=== PATIENT | male | born 1955 | race Caucasian/White ===

== ENCOUNTER 2017-11-20 16:39 | Inpatient (IN) | payer MEDICAID ==
[~2017-11-20] VITALS: Ht 182.9 cm; Wt 52.0 kg
[~2017-11-20 16:39] MED LIST: LISI30TA4 PO; MULT1TAB74 PO; VITA-268 PO
[2017-11-20 22:36] LABS: BASOPHILS % (AUTO) 0 % (0-1); EOSINOPHILS % (AUTO) 0 % (0-6); HEMATOCRIT 28.6 % (42.0-52.0); HEMOGLOBIN 9.6 g/dl (14.0-17.9); LYMPHOCYTES # (AUTO) 0.5 X10'3 (1.1-4.8); LYMPHOCYTES % (AUTO) 3.4 % (21-51); MEAN CORPUSCULAR HEMOGLOBIN 31.4 PG (27.0-31.0); MEAN CORPUSCULAR HGB CONC 33.4 % (33.0-36.5); MEAN PLATELET VOLUME 8.7 FL (7.4-10.4); MONOCYTES # (AUTO) 0.8 X10'3 (0-0.9); MONOCYTES % (AUTO) 5.6 % (2-12); NEUTROPHILS # (AUTO) 12.3 X10'3 (1.8-7.7); PLATELET COUNT 346 X10'3 (140-440); RED BLOOD COUNT 3.04 X10'6 (4.70-6.10); RED CELL DISTRIBUTION WIDTH 13.7 % (11.5-14.5); WHITE BLOOD COUNT 13.5 X10'3 (4.5-11.0)
[2017-11-20 22:51] LABS: ALANINE AMINOTRANSFERASE 61 U/L (12-78); ALBUMIN 2.6 G/DL (3.4-5.0); ALBUMIN/GLOBULIN RATIO 0.7 (1.1-1.5); ALKALINE PHOSPHATASE 47 IU/L (46-116); ANION GAP 12 (8-16); ASPARTATE AMINO TRANSFERASE 52 U/L (10-37); BILIRUBIN,TOTAL 1.1 MG/DL (0.1-1.0); BLOOD UREA NITROGEN 60 MG/DL (7-18); BUN/CREATININE RATIO 16.3 (5.4-32.0); CALCIUM 8.1 MG/DL (8.5-10.1); CHLORIDE 96 MMOL/L (99-107); CREATININE 3.69 MG/DL (0.60-1.10); GLUCOSE 109 MG/DL (70-104); LIPASE 130 U/L (73-393); POTASSIUM 4.4 MMOL/L (3.5-5.1); SODIUM 132 MMOL/L (135-145); TOTAL CARBON DIOXIDE 24.5 MMOL/L (24-32); TOTAL PROTEIN 6.1 G/DL (6.4-8.2); eGFR 17 ML/MIN
[2017-11-20] MEDS ORDERED: morphine 4 MG/ML inj SYRINge IV ONE (23:50)
[2017-11-20] MEDS ORDERED: ondansetron/PF 4mg/2ml inj IV ONE (23:50)
[2017-11-20 23:52] LABS: CLARITY,URINE SLIGHTLY CLOUDY (Clear); COLOR,URINE YELLOW (Yellow); GLUCOSE, URINE NEGATIVE (Neg); KETONES,URINE NEGATIVE (Neg); LEUKOCYTE ESTERASE ,URINE NEGATIVE (Neg); NITRITES, URINE NEGATIVE (Neg); OCCULT BLOOD,URINE SMALL (Neg); PH,URINE 5.5 (4.8-8.0); PROTEIN,URINE TRACE mg/dl (Neg); UA COLLECTION TYPE STRAIGHT CATH; UROBILINOGEN,URINE 0.2 E.U/dL (0.2-1.0)
[2017-11-20] MEDS ORDERED: normal saline 1000ML IV soln IVB ONE (23:55)
[2017-11-21 00:06] LABS: SQUAMOUS EPITHELIAL CELL,UR MODERATE /LPF (FEW)
[2017-11-21 00:07] LABS: BACTERIA,URINE FEW /HPF (Neg); RBC,URINE 0-2 /HPF (0-2); WBC,URINE 0-4 /HPF (0-4)
[2017-11-21 00:08] LABS: AMORPHOUS URATES 2+; MUCUS STRANDS MODERATE /LPF (Neg)
[2017-11-21] MEDS ORDERED: diphenhydrAMINE 25mg capsule PO PRN (00:10)
[2017-11-21] MEDS ORDERED: HYDROmorphone inj. 0.5 MG/0.5 ML DISP.SYRIN IV PRN ×2 (00:10)
[2017-11-21] MEDS ORDERED: acetaminophen 650mg rectal suppository RC PRN (00:10)
[2017-11-21] MEDS ORDERED: HYDROcodone/acetaminophen 5mg/325mg tablet PO PRN (00:10)
[2017-11-21] MEDS ORDERED: metoclopramide 5 mg/ml inj IV PRN (00:10)
[2017-11-21] MEDS ORDERED: acetaminophen 325mg tablet PO PRN ×2 (00:10)
[2017-11-21] MEDS ORDERED: diphenhydrAMINE 50 mg/ml inj IV PRN (00:10)
[2017-11-21] MEDS ORDERED: ondansetron/PF 4mg/2ml inj IV PRN (00:10)
[2017-11-21] MEDS ORDERED: HYDROcodone/acetaminophen 10/325mg tab PO PRN (00:10)
[2017-11-21] MEDS ORDERED: magnesium hydroxide 30ml (MOM) UD suspension PO PRN (00:10)
[2017-11-21] MEDS ORDERED: mag hydrox/Alum hydrox/simeth 30ml oral suspension PO PRN (00:10)
[2017-11-21] MEDS ORDERED: bisacodyl 10mg suppository rectal RC PRN (00:10)
[2017-11-21] MEDS ORDERED: morphine 2 MG/ML inj. syringe IV PRN (00:10)
[2017-11-21 01:09] LABS: INR 1.2 INR; PARTIAL THROMBOPLASTIN TIME 31 SECONDS (22-32); PROTHROMBIN TIME 12.4 SECONDS (9.0-12.0)
[2017-11-21 01:18] LABS: MAGNESIUM 2.5 MG/DL (1.5-2.4); PHOSPHORUS 6.7 MG/DL (2.3-4.5)
[2017-11-21] MEDS: normal saline 1000ml 1,000 ML IV SCH ×2 (02:22→21:32)
[2017-11-21] MEDS: docusate sod 100mg capsule PO SCH ×3 (08:00→20:29)
[2017-11-21] MEDS: furosemide 10 MG/1 ML 10ml inj IV SCH (08:18)
[2017-11-21] MEDS: pantoprazole 40 MG vial IV SCH (08:19)
[2017-11-21] MEDS: albumin (human) 25% 100 ML IV solution IV SCH ×2 (08:20→20:31)
[2017-11-21] MEDS ORDERED: BACL10TA2 PO (08:56)
[2017-11-21] MEDS ORDERED: METO-395 PO (08:56)
[2017-11-21] MEDS ORDERED: OXYC5TAB2 PO (08:58)
[2017-11-21] MEDS: morphine 2 MG/ML inj. syringe IV PRN (10:43)
[2017-11-21 12:07] LABS: BASOPHILS % (AUTO) 0 % (0-1); EOSINOPHILS # (AUTO) 0.2 X10'3 (0-0.9); EOSINOPHILS % (AUTO) 2.3 % (0-6); HEMATOCRIT 26.1 % (42.0-52.0); HEMOGLOBIN 8.7 g/dl (14.0-17.9); LYMPHOCYTES # (AUTO) 0.3 X10'3 (1.1-4.8); LYMPHOCYTES % (AUTO) 2.8 % (21-51); MEAN CORPUSCULAR HEMOGLOBIN 31.6 PG (27.0-31.0); MEAN CORPUSCULAR HGB CONC 33.2 % (33.0-36.5); MEAN CORPUSCULAR VOLUME 95.2 FL (78-98); MEAN PLATELET VOLUME 8.1 FL (7.4-10.4); MONOCYTES # (AUTO) 0.6 X10'3 (0-0.9); MONOCYTES % (AUTO) 5.9 % (2-12); NEUTROPHILS # (AUTO) 9.2 X10'3 (1.8-7.7); PLATELET COUNT 282 X10'3 (140-440); RED BLOOD COUNT 2.74 X10'6 (4.70-6.10); RED CELL DISTRIBUTION WIDTH 13.9 % (11.5-14.5); WHITE BLOOD COUNT 10.4 X10'3 (4.5-11.0)
[2017-11-21 12:23] LABS: ALANINE AMINOTRANSFERASE 51 U/L (12-78); ALBUMIN 2.9 G/DL (3.4-5.0); ALBUMIN/GLOBULIN RATIO 1.1 (1.1-1.5); ALKALINE PHOSPHATASE 33 IU/L (46-116); ANION GAP 9 (8-16); ASPARTATE AMINO TRANSFERASE 43 U/L (10-37); BLOOD UREA NITROGEN 55 MG/DL (7-18); BUN/CREATININE RATIO 19.6 (5.4-32.0); CALCIUM 7.8 MG/DL (8.5-10.1); CHLORIDE 103 MMOL/L (99-107); GLUCOSE 106 MG/DL (70-104); PHOSPHORUS 5.6 MG/DL (2.3-4.5); POTASSIUM 4.5 MMOL/L (3.5-5.1); SODIUM 137 MMOL/L (135-145); TOTAL CARBON DIOXIDE 25.3 MMOL/L (24-32); TOTAL PROTEIN 5.5 G/DL (6.4-8.2); eGFR 23 ML/MIN
[2017-11-21 13:10] VITALS: BP 128/66
[2017-11-21 15:20] VITALS: BP 122/65
[2017-11-21 16:08] VITALS: BP_SYST 122
[2017-11-21 17:00] VITALS: BP 137/78
[2017-11-21 19:30] VITALS: BP 133/69
[2017-11-21] MEDS ORDERED: temazepam 15mg capsule PO PRN (21:00)
[2017-11-21] MEDS: oxyCODONE IR 5mg (immed. release) tablet PO PRN (22:31)
[2017-11-22] VITALS: BP 103/58
[2017-11-22] MEDS: normal saline 1000ml 1,000 ML IV SCH ×2 (01:54→16:52)
[2017-11-22] MEDS: oxyCODONE IR 5mg (immed. release) tablet PO PRN ×4 (04:42→23:34)
[2017-11-22 06:51] LABS: BASOPHILS % (AUTO) 0.2 % (0-1); EOSINOPHILS # (AUTO) 0.2 X10'3 (0-0.9); EOSINOPHILS % (AUTO) 1.7 % (0-6); HEMATOCRIT 26.3 % (42.0-52.0); HEMOGLOBIN 8.8 g/dl (14.0-17.9); LYMPHOCYTES # (AUTO) 0.5 X10'3 (1.1-4.8); MEAN CORPUSCULAR HEMOGLOBIN 31.9 PG (27.0-31.0); MEAN CORPUSCULAR HGB CONC 33.7 % (33.0-36.5); MEAN CORPUSCULAR VOLUME 94.9 FL (78-98); MEAN PLATELET VOLUME 8.5 FL (7.4-10.4); MONOCYTES # (AUTO) 0.7 X10'3 (0-0.9); MONOCYTES % (AUTO) 6.8 % (2-12); NEUTROPHILS # (AUTO) 9.1 X10'3 (1.8-7.7); NEUTROPHILS % (AUTO) 86.3 % (42-75); PLATELET COUNT 292 X10'3 (140-440); RED BLOOD COUNT 2.77 X10'6 (4.70-6.10); RED CELL DISTRIBUTION WIDTH 13.9 % (11.5-14.5); WHITE BLOOD COUNT 10.6 X10'3 (4.5-11.0)
[2017-11-22 07:10] VITALS: BP 102/56
[2017-11-22 07:21] LABS: ALANINE AMINOTRANSFERASE 60 U/L (12-78); ALBUMIN 3.1 G/DL (3.4-5.0); ALBUMIN/GLOBULIN RATIO 1.1 (1.1-1.5); ALKALINE PHOSPHATASE 39 IU/L (46-116); ANION GAP 7 (8-16); ASPARTATE AMINO TRANSFERASE 59 U/L (10-37); BLOOD UREA NITROGEN 45 MG/DL (7-18); BUN/CREATININE RATIO 21.5 (5.4-32.0); CALCIUM 8.1 MG/DL (8.5-10.1); CHLORIDE 102 MMOL/L (99-107); CREATININE 2.09 MG/DL (0.60-1.10); GLUCOSE 109 MG/DL (70-104); POTASSIUM 3.9 MMOL/L (3.5-5.1); SODIUM 135 MMOL/L (135-145); TOTAL CARBON DIOXIDE 25.8 MMOL/L (24-32); TOTAL PROTEIN 5.8 G/DL (6.4-8.2); eGFR 32 ML/MIN
[2017-11-22] MEDS: docusate sod 100mg capsule PO SCH ×2 (08:00→19:43)
[2017-11-22 08:25] LABS: PHOSPHORUS 4.4 MG/DL (2.3-4.5)
[2017-11-22] MEDS: pantoprazole 40 MG vial IV SCH (08:32)
[2017-11-22] MEDS: furosemide 10 MG/1 ML 10ml inj IV SCH (08:33)
[2017-11-22] MEDS: albumin (human) 25% 100 ML IV solution IV SCH ×2 (08:34→19:36)
[2017-11-22 11:00] VITALS: BP 111/61
[2017-11-22] MEDS: morphine 2 MG/ML inj. syringe IV PRN (13:44)
[2017-11-22 18:00] VITALS: BP 123/67
[2017-11-22] MEDS: baclofen 10mg tablet PO PRN (19:34)
[2017-11-23] VITALS: BP 121/71
[2017-11-23] MEDS: normal saline 1000ml 1,000 ML IV SCH ×2 (05:22→19:48)
[2017-11-23 06:34] LABS: BASOPHILS % (AUTO) 0.2 % (0-1); EOSINOPHILS # (AUTO) 0.3 X10'3 (0-0.9); EOSINOPHILS % (AUTO) 2.6 % (0-6); HEMATOCRIT 25.4 % (42.0-52.0); HEMOGLOBIN 8.6 g/dl (14.0-17.9); LYMPHOCYTES # (AUTO) 0.5 X10'3 (1.1-4.8); LYMPHOCYTES % (AUTO) 4.3 % (21-51); MEAN CORPUSCULAR HEMOGLOBIN 31.8 PG (27.0-31.0); MEAN CORPUSCULAR VOLUME 93.5 FL (78-98); MEAN PLATELET VOLUME 7.9 FL (7.4-10.4); MONOCYTES # (AUTO) 1.1 X10'3 (0-0.9); MONOCYTES % (AUTO) 9.4 % (2-12); NEUTROPHILS # (AUTO) 9.9 X10'3 (1.8-7.7); NEUTROPHILS % (AUTO) 83.5 % (42-75); PLATELET COUNT 307 X10'3 (140-440); RED BLOOD COUNT 2.71 X10'6 (4.70-6.10); RED CELL DISTRIBUTION WIDTH 14.2 % (11.5-14.5); WHITE BLOOD COUNT 11.9 X10'3 (4.5-11.0)
[2017-11-23 06:57] LABS: ALANINE AMINOTRANSFERASE 54 U/L (12-78); ALBUMIN 3.5 G/DL (3.4-5.0); ALBUMIN/GLOBULIN RATIO 1.5 (1.1-1.5); ALKALINE PHOSPHATASE 44 IU/L (46-116); ANION GAP 9 (8-16); ASPARTATE AMINO TRANSFERASE 50 U/L (10-37); BILIRUBIN,TOTAL 0.9 MG/DL (0.1-1.0); BLOOD UREA NITROGEN 42 MG/DL (7-18); BUN/CREATININE RATIO 22.1 (5.4-32.0); CALCIUM 7.9 MG/DL (8.5-10.1); CHLORIDE 101 MMOL/L (99-107); GLUCOSE 122 MG/DL (70-104); POTASSIUM 4.1 MMOL/L (3.5-5.1); SODIUM 134 MMOL/L (135-145); TOTAL CARBON DIOXIDE 24.2 MMOL/L (24-32); TOTAL PROTEIN 5.8 G/DL (6.4-8.2); eGFR 36 ML/MIN
[2017-11-23 07:00] VITALS: BP 122/56
[2017-11-23] MEDS: docusate sod 100mg capsule PO SCH ×2 (08:00→19:48)
[2017-11-23] MEDS: furosemide 10 MG/1 ML 10ml inj IV SCH (08:43)
[2017-11-23] MEDS: pantoprazole 40mg Tablet.DR PO SCH (08:44)
[2017-11-23] MEDS: oxyCODONE IR 5mg (immed. release) tablet PO PRN ×3 (08:44→21:41)
[2017-11-23] MEDS ORDERED: LIDOcaine 1%/PF 5ML 10 MG/ML VIAL ONE (10:28)
[2017-11-23 11:12] VITALS: BP 120/72
[2017-11-23 11:38] VITALS: BP 99/42
[2017-11-23 12:00] VITALS: BP 120/72
[2017-11-23 12:58] LABS: BODY FLUID PH (NON-PLEURAL) 7.5
[2017-11-23 13:02] LABS: LDH,BODY FLUID 734 U/L; TOTAL PROTEIN,BODY FLUID 4.1 G/DL; TRIGLYCERIDES,BODY FLUID 16 MG/DL
[2017-11-23 15:15] LABS: EOSINOPHILS,BODY FLUID 2 %; LYMPHOCYTES,BODY FLUID 5 %; MONOCYTES,BODY FLUID 13 %; NEUTROPHILS,BODY FLUID 80 %
[2017-11-23 15:57] LABS: BF RBC COUNT 1400 /CU MM; BF WBC COUNT 5150 /CU MM (0-1000); BFAPPEAR CLOUDY; BFCOLOR YELLOW; BFVOLUME 1200 ML
[2017-11-23 20:00] VITALS: BP 101/63
[2017-11-23] MEDS: baclofen 10mg tablet PO PRN (21:42)
[2017-11-24] VITALS: BP 112/60
[2017-11-24 06:03] LABS: BASOPHILS % (AUTO) 0.1 % (0-1); EOSINOPHILS # (AUTO) 0.4 X10'3 (0-0.9); EOSINOPHILS % (AUTO) 2.9 % (0-6); HEMATOCRIT 28.3 % (42.0-52.0); HEMOGLOBIN 9.3 g/dl (14.0-17.9); LYMPHOCYTES # (AUTO) 0.7 X10'3 (1.1-4.8); LYMPHOCYTES % (AUTO) 4.8 % (21-51); MEAN CORPUSCULAR HEMOGLOBIN 30.9 PG (27.0-31.0); MEAN CORPUSCULAR HGB CONC 32.9 % (33.0-36.5); MEAN CORPUSCULAR VOLUME 94.1 FL (78-98); MEAN PLATELET VOLUME 7.7 FL (7.4-10.4); MONOCYTES # (AUTO) 1.1 X10'3 (0-0.9); MONOCYTES % (AUTO) 7.9 % (2-12); NEUTROPHILS # (AUTO) 11.9 X10'3 (1.8-7.7); NEUTROPHILS % (AUTO) 84.3 % (42-75); PLATELET COUNT 323 X10'3 (140-440); RED BLOOD COUNT 3.01 X10'6 (4.70-6.10); RED CELL DISTRIBUTION WIDTH 14.1 % (11.5-14.5); WHITE BLOOD COUNT 14.2 X10'3 (4.5-11.0)
[2017-11-24 06:45] LABS: ALANINE AMINOTRANSFERASE 50 U/L (12-78); ALBUMIN 2.8 G/DL (3.4-5.0); ALBUMIN/GLOBULIN RATIO 1.1 (1.1-1.5); ALKALINE PHOSPHATASE 42 IU/L (46-116); ANION GAP 7 (8-16); ASPARTATE AMINO TRANSFERASE 39 U/L (10-37); BILIRUBIN,TOTAL 0.9 MG/DL (0.1-1.0); BLOOD UREA NITROGEN 30 MG/DL (7-18); BUN/CREATININE RATIO 19.1 (5.4-32.0); CALCIUM 7.9 MG/DL (8.5-10.1); CHLORIDE 104 MMOL/L (99-107); CREATININE 1.57 MG/DL (0.60-1.10); GLUCOSE 116 MG/DL (70-104); POTASSIUM 3.9 MMOL/L (3.5-5.1); SODIUM 136 MMOL/L (135-145); TOTAL CARBON DIOXIDE 24.8 MMOL/L (24-32); TOTAL PROTEIN 5.3 G/DL (6.4-8.2); eGFR 45 ML/MIN
[2017-11-24 07:00] VITALS: BP 107/63
[2017-11-24] MEDS: docusate sod 100mg capsule PO SCH ×2 (08:54→19:02)
[2017-11-24] MEDS: pantoprazole 40mg Tablet.DR PO SCH (08:54)
[2017-11-24] MEDS: normal saline 1000ml 1,000 ML IV SCH (08:55)
[2017-11-24] MEDS: oxyCODONE IR 5mg (immed. release) tablet PO PRN ×3 (08:55→21:12)
[2017-11-24] MEDS: furosemide 10 MG/1 ML 10ml inj IV SCH (08:55)
[2017-11-24 11:18] VITALS: BP 118/62
[2017-11-24 19:00] VITALS: BP 115/75
[2017-11-24] MEDS: CefTRIAXone/D5W-Rocephin 1gm 50 ML IV SCH (19:01)
[2017-11-24] MEDS: baclofen 10mg tablet PO PRN (21:23)
[2017-11-25] VITALS: BP 108/54
[2017-11-25] MEDS: oxyCODONE IR 5mg (immed. release) tablet PO PRN ×3 (04:07→19:37)
[2017-11-25 05:29] LABS: BASOPHILS % (AUTO) 0.1 % (0-1); EOSINOPHILS # (AUTO) 0.6 X10'3 (0-0.9); EOSINOPHILS % (AUTO) 5.1 % (0-6); HEMOGLOBIN 8.5 g/dl (14.0-17.9); LYMPHOCYTES # (AUTO) 0.6 X10'3 (1.1-4.8); LYMPHOCYTES % (AUTO) 5.5 % (21-51); MEAN CORPUSCULAR HEMOGLOBIN 30.7 PG (27.0-31.0); MEAN CORPUSCULAR HGB CONC 32.9 % (33.0-36.5); MEAN CORPUSCULAR VOLUME 93.5 FL (78-98); MEAN PLATELET VOLUME 7.8 FL (7.4-10.4); MONOCYTES # (AUTO) 1.4 X10'3 (0-0.9); MONOCYTES % (AUTO) 12.3 % (2-12); NEUTROPHILS # (AUTO) 8.7 X10'3 (1.8-7.7); PLATELET COUNT 282 X10'3 (140-440); RED BLOOD COUNT 2.78 X10'6 (4.70-6.10); RED CELL DISTRIBUTION WIDTH 14.6 % (11.5-14.5); WHITE BLOOD COUNT 11.3 X10'3 (4.5-11.0)
[2017-11-25 05:48] LABS: ALANINE AMINOTRANSFERASE 50 U/L (12-78); ALBUMIN 2.4 G/DL (3.4-5.0); ALKALINE PHOSPHATASE 48 IU/L (46-116); ANION GAP 6 (8-16); ASPARTATE AMINO TRANSFERASE 42 U/L (10-37); BILIRUBIN,TOTAL 0.8 MG/DL (0.1-1.0); BLOOD UREA NITROGEN 26 MG/DL (7-18); CALCIUM 7.5 MG/DL (8.5-10.1); CHLORIDE 102 MMOL/L (99-107); CREATININE 1.53 MG/DL (0.60-1.10); GLUCOSE 117 MG/DL (70-104); POTASSIUM 3.6 MMOL/L (3.5-5.1); SODIUM 132 MMOL/L (135-145); TOTAL CARBON DIOXIDE 23.8 MMOL/L (24-32); TOTAL PROTEIN 4.9 G/DL (6.4-8.2); eGFR 46 ML/MIN
[2017-11-25 07:30] VITALS: BP 103/62
[2017-11-25] MEDS: docusate sod 100mg capsule PO SCH ×2 (07:51→19:37)
[2017-11-25] MEDS: pantoprazole 40mg Tablet.DR PO SCH (07:51)
[2017-11-25] MEDS: furosemide 10 MG/1 ML 10ml inj IV SCH (07:52)
[2017-11-25] MEDS: CefTRIAXone/D5W-Rocephin 1gm 50 ML IV SCH (07:52)
[2017-11-25] MEDS: baclofen 10mg tablet PO PRN (07:55)
[2017-11-25 11:13] VITALS: BP 110/63
[2017-11-25] MEDS: metroNIDAZOLE-Flagyl 500mg/NS 100 ML IV SCH (16:21)
[2017-11-25 19:00] VITALS: BP 123/76
[2017-11-25] MEDS: lactobacillus rhamnosus 10,000 MMU CELLS/CAPSULE PO SCH (19:37)
[2017-11-26] VITALS: BP 128/69
[2017-11-26] MEDS: metroNIDAZOLE-Flagyl 500mg/NS 100 ML IV SCH ×3 (00:28→16:19)
[2017-11-26] MEDS: oxyCODONE IR 5mg (immed. release) tablet PO PRN ×3 (04:18→21:08)
[2017-11-26 06:06] LABS: ALANINE AMINOTRANSFERASE 43 U/L (12-78); ALBUMIN 2.2 G/DL (3.4-5.0); ALBUMIN/GLOBULIN RATIO 0.9 (1.1-1.5); ALKALINE PHOSPHATASE 61 IU/L (46-116); ANION GAP 8 (8-16); ASPARTATE AMINO TRANSFERASE 37 U/L (10-37); BILIRUBIN,TOTAL 0.6 MG/DL (0.1-1.0); BLOOD UREA NITROGEN 18 MG/DL (7-18); BUN/CREATININE RATIO 14.9 (5.4-32.0); CALCIUM 7.2 MG/DL (8.5-10.1); CHLORIDE 102 MMOL/L (99-107); CREATININE 1.21 MG/DL (0.60-1.10); GLUCOSE 118 MG/DL (70-104); POTASSIUM 3.3 MMOL/L (3.5-5.1); SODIUM 134 MMOL/L (135-145); TOTAL CARBON DIOXIDE 24.2 MMOL/L (24-32); TOTAL PROTEIN 4.7 G/DL (6.4-8.2); eGFR 61 ML/MIN
[2017-11-26 06:40] LABS: BASOPHILS # (AUTO) 0.1 X10'3 (0-0.2); BASOPHILS % (AUTO) 0.6 % (0-1); EOSINOPHILS # (AUTO) 0.7 X10'3 (0-0.9); EOSINOPHILS % (AUTO) 6.7 % (0-6); HEMATOCRIT 24.5 % (42.0-52.0); HEMOGLOBIN 8.5 g/dl (14.0-17.9); LYMPHOCYTES # (AUTO) 0.7 X10'3 (1.1-4.8); LYMPHOCYTES % (AUTO) 6.1 % (21-51); MEAN CORPUSCULAR HEMOGLOBIN 32.3 PG (27.0-31.0); MEAN CORPUSCULAR HGB CONC 34.7 % (33.0-36.5); MEAN CORPUSCULAR VOLUME 93.1 FL (78-98); MEAN PLATELET VOLUME 8.4 FL (7.4-10.4); MONOCYTES # (AUTO) 1.4 X10'3 (0-0.9); MONOCYTES % (AUTO) 13.2 % (2-12); NEUTROPHILS # (AUTO) 7.8 X10'3 (1.8-7.7); NEUTROPHILS % (AUTO) 73.4 % (42-75); PLATELET COUNT 294 X10'3 (140-440); RED BLOOD COUNT 2.64 X10'6 (4.70-6.10); RED CELL DISTRIBUTION WIDTH 13.6 % (11.5-14.5); WHITE BLOOD COUNT 10.7 X10'3 (4.5-11.0)
[2017-11-26 07:00] VITALS: BP 108/59
[2017-11-26] MEDS: lactobacillus rhamnosus 10,000 MMU CELLS/CAPSULE PO SCH ×2 (07:31→21:08)
[2017-11-26] MEDS: pantoprazole 40mg Tablet.DR PO SCH (07:31)
[2017-11-26] MEDS: docusate sod 100mg capsule PO SCH ×2 (07:31→21:08)
[2017-11-26] MEDS: furosemide 20 MG/2 ML vial IV SCH (07:31)
[2017-11-26] MEDS ORDERED: potassium Cl 20 mEq SR tablet PO PRN (08:40)
[2017-11-26] MEDS ORDERED: magnesium 1gm/100ml D5W IVPB 100 ML IV PRN (08:40)
[2017-11-26] MEDS ORDERED: magnesium 4gm in 100ml NS 100 ML IV PRN (08:40)
[2017-11-26] MEDS ORDERED: magnesium Cl slow-release 64mg tablet PO PRN (08:40)
[2017-11-26] MEDS ORDERED: potassium Cl 40MEQ/NS 500ml 500 ML IV PRN ×2 (08:40)
[2017-11-26] MEDS: baclofen 10mg tablet PO PRN (08:54)
[2017-11-26] MEDS: potassium Cl 20 mEq SR tablet PO PRN ×3 (08:54→21:08)
[2017-11-26 08:56] LABS: MAGNESIUM 1.6 MG/DL (1.5-2.4)
[2017-11-26] MEDS: CefTRIAXone/D5W-Rocephin 1gm 50 ML IV SCH (11:32)
[2017-11-26 12:00] VITALS: BP 103/59
[2017-11-26 20:00] VITALS: BP 134/71
[2017-11-27] VITALS: BP 123/66
[2017-11-27] MEDS: oxyCODONE IR 5mg (immed. release) tablet PO PRN ×3 (04:39→22:16)
[2017-11-27 05:48] LABS: MAGNESIUM 1.7 MG/DL (1.5-2.4); POTASSIUM 3.4 MMOL/L (3.5-5.1)
[2017-11-27 07:14] VITALS: BP 124/73
[2017-11-27] MEDS: pantoprazole 40mg Tablet.DR PO SCH (07:24)
[2017-11-27] MEDS: metroNIDAZOLE-Flagyl 500mg/NS 100 ML IV SCH ×4 (07:24→23:22)
[2017-11-27] MEDS: docusate sod 100mg capsule PO SCH ×2 (07:25→20:29)
[2017-11-27] MEDS: lactobacillus rhamnosus 10,000 MMU CELLS/CAPSULE PO SCH ×2 (07:25→20:29)
[2017-11-27] MEDS: potassium Cl 20 mEq SR tablet PO PRN ×3 (07:25→16:18)
[2017-11-27] MEDS: furosemide 20 MG/2 ML vial IV SCH (07:25)
[2017-11-27] MEDS: CefTRIAXone/D5W-Rocephin 1gm 50 ML IV SCH (08:51)
[2017-11-27 11:25] VITALS: BP 121/74
[2017-11-27] MEDS ORDERED: oxyCODONE IR 5mg (immed. release) tablet PO PRN (11:55)
[2017-11-27] MEDS ORDERED: lactose-reduced food (Ensure High Protein) 237ml bottle PO SCH (12:30)
[2017-11-27 19:20] VITALS: BP 120/75
[2017-11-28] VITALS: BP 117/72
[2017-11-28] MEDS: oxyCODONE IR 5mg (immed. release) tablet PO PRN ×3 (03:12→15:17)
[2017-11-28 05:39] LABS: MAGNESIUM 1.6 MG/DL (1.5-2.4); POTASSIUM 3.8 MMOL/L (3.5-5.1)
[2017-11-28 07:27] VITALS: BP 129/71
[2017-11-28] MEDS: docusate sod 100mg capsule PO SCH (08:00)
[2017-11-28] MEDS: furosemide 20 MG/2 ML vial IV SCH (08:22)
[2017-11-28] MEDS: pantoprazole 40mg Tablet.DR PO SCH (08:22)
[2017-11-28] MEDS: lactobacillus rhamnosus 10,000 MMU CELLS/CAPSULE PO SCH (08:22)
[2017-11-28] MEDS: CefTRIAXone/D5W-Rocephin 1gm 50 ML IV SCH (08:22)
[2017-11-28] MEDS: metroNIDAZOLE-Flagyl 500mg/NS 100 ML IV SCH ×2 (09:07→15:16)
[2017-11-28 10:42] LABS: BASOPHILS % (AUTO) 0.1 % (0-1); EOSINOPHILS # (AUTO) 0.8 X10'3 (0-0.9); EOSINOPHILS % (AUTO) 5.5 % (0-6); HEMOGLOBIN 9.8 g/dl (14.0-17.9); LYMPHOCYTES # (AUTO) 0.5 X10'3 (1.1-4.8); LYMPHOCYTES % (AUTO) 3.2 % (21-51); MEAN CORPUSCULAR HEMOGLOBIN 31.9 PG (27.0-31.0); MEAN CORPUSCULAR HGB CONC 33.9 % (33.0-36.5); MEAN CORPUSCULAR VOLUME 94.2 FL (78-98); MEAN PLATELET VOLUME 8.1 FL (7.4-10.4); MONOCYTES # (AUTO) 1.2 X10'3 (0-0.9); NEUTROPHILS # (AUTO) 12.6 X10'3 (1.8-7.7); NEUTROPHILS % (AUTO) 83.2 % (42-75); PLATELET COUNT 332 X10'3 (140-440); RED BLOOD COUNT 3.08 X10'6 (4.70-6.10); RED CELL DISTRIBUTION WIDTH 13.8 % (11.5-14.5); WHITE BLOOD COUNT 15.1 X10'3 (4.5-11.0)
[2017-11-28 10:55] LABS: ALANINE AMINOTRANSFERASE 25 U/L (12-78); ALBUMIN 2.3 G/DL (3.4-5.0); ALBUMIN/GLOBULIN RATIO 0.8 (1.1-1.5); ALKALINE PHOSPHATASE 65 IU/L (46-116); ANION GAP 7 (8-16); ASPARTATE AMINO TRANSFERASE 27 U/L (10-37); BILIRUBIN,TOTAL 0.3 MG/DL (0.1-1.0); BLOOD UREA NITROGEN 14 MG/DL (7-18); BUN/CREATININE RATIO 10.9 (5.4-32.0); CALCIUM 7.5 MG/DL (8.5-10.1); CHLORIDE 101 MMOL/L (99-107); CREATININE 1.29 MG/DL (0.60-1.10); GLUCOSE 162 MG/DL (70-104); POTASSIUM 3.5 MMOL/L (3.5-5.1); SODIUM 135 MMOL/L (135-145); TOTAL CARBON DIOXIDE 27.2 MMOL/L (24-32); TOTAL PROTEIN 5.3 G/DL (6.4-8.2); eGFR 56 ML/MIN
[2017-11-28] MEDS ORDERED: METR500T4 PO (13:55)
[2017-11-28] MEDS ORDERED: CEFD300C3 PO (13:55)
[2017-11-28] MEDS: baclofen 10mg tablet PO PRN (15:16)
== END 2017-11-28 18:04 | disposition home or self-care (01) | DRG 721 ==
LOC: ER 16:40 → ED HOLD 11-21 00:09 → SUR 3N 11-21 16:41
PROVIDERS: ADMIT Family Medicine; ATTEND Family Medicine
PROC: 0W9G3ZZ Drainage of Peritoneal Cavity, Percutaneous Approach (ICD-10-PCS; principal; 2017-11-23)
DX: T81.4XXA Infection following a procedure, initial encounter (principal); K65.2 Spontaneous bacterial peritonitis; N17.9 Acute kidney failure, unspecified; I95.9 Hypotension, unspecified; C22.9 Malignant neoplasm of liver, not specified as primary or secondary; E87.1 Hypo-osmolality and hyponatremia; R18.8 Other ascites; N28.1 Cyst of kidney, acquired; E83.39 Other disorders of phosphorus metabolism; D64.9 Anemia, unspecified; I12.9 Hypertensive chronic kidney disease with stage 1 through stage 4 chronic kidney disease, or unspecified chronic kidney disease; N18.9 Chronic kidney disease, unspecified; Z16.23 Resistance to quinolones and fluoroquinolones; B96.20 Unspecified Escherichia coli [E. coli] as the cause of diseases classified elsewhere; E86.0 Dehydration; B18.2 Chronic viral hepatitis C; K72.10 Chronic hepatic failure without coma; Z60.2 Problems related to living alone; Z90.49 Acquired absence of other specified parts of digestive tract; Z79.899 Other long term (current) drug therapy; Y83.8 Other surgical procedures as the cause of abnormal reaction of the patient, or of later complication, without mention of misadventure at the time of the procedure; Y92.89 Other specified places as the place of occurrence of the external cause
CPT/HCPCS: 36415; 49083; 74176; 80053; 81001; 83605; 83615; 83690; 83735; 83880; 83986; 84100; 84132; 84157; 84478; 85025; 85610; 85730; 87040; 87070; 87077; 87186; 89051; 96361; 96374; 96375; 97161; 99285; A4353; A6212; A6213; A6250; C9113; J0696; J1940; J2001; J2270; J2405; J3490; J7030; P9047

== ENCOUNTER 2019-03-23 07:35 | Day surgery (SDC) | payer MEDICAID ==
[2019-03-18 11:47] LABS: BASOPHILS % (AUTO) 0.9 % (0-1); EOSINOPHILS # (AUTO) 0.2 X10'3 (0-0.9); EOSINOPHILS % (AUTO) 4.4 % (0-6); LYMPHOCYTES # (AUTO) 1.2 X10'3 (1.1-4.8); LYMPHOCYTES % (AUTO) 22.3 % (21-51); MEAN CORPUSCULAR HEMOGLOBIN 31.5 PG (27.0-31.0); MEAN CORPUSCULAR HGB CONC 33.7 g/dL (33.0-36.5); MEAN CORPUSCULAR VOLUME 93.3 FL (78-98); MEAN PLATELET VOLUME 8.8 FL (7.4-10.4); MONOCYTES # (AUTO) 0.5 X10'3 (0-0.9); MONOCYTES % (AUTO) 9.2 % (2-12); NEUTROPHILS # (AUTO) 3.4 X10'3 (1.8-7.7); NEUTROPHILS % (AUTO) 63.2 % (42-75); PRE OP HEMOGLOBIN 13.8 g/dL (14.0-17.9); PRE OP PLATELET COUNT 177 X10'3 (140-440); RED BLOOD COUNT 4.39 X10'6 (4.70-6.10); RED CELL DISTRIBUTION WIDTH 14.8 % (11.5-14.5)
[2019-03-18 12:02] LABS: ALBUMIN/GLOBULIN RATIO 1.3 (1.1-1.5); ALKALINE PHOSPHATASE 64 IU/L (46-116); BLOOD UREA NITROGEN 24 MG/DL (7-18); BUN/CREATININE RATIO 18.5 (5.4-32.0); CALCIUM 8.8 MG/DL (8.5-10.1); CHLORIDE 108 MMOL/L (99-107); PRE OP ALT 38 U/L (30-65); PRE OP ANION GAP 5 (8-16); PRE OP AST 22 U/L (10-37); PRE OP BILIRUB, TOTAL 0.3 MG/DL (0.0-1.0); PRE OP GLUCOSE 77 MG/DL (70-104); PRE OP POTASSIUM 4.6 MMOL/L (3.4-5.1); PRE OP SODIUM 145 MMOL/L (135-145); TOTAL CARBON DIOXIDE 31.8 MMOL/L (24-32); TOTAL PROTEIN 7.2 G/DL (6.4-8.2); eGFR 56 ML/MIN
[~2019-03-23] VITALS: Ht 177.8 cm; Wt 67.6 kg
[2019-03-23] VITALS (18 sets, daily range): BP systolic 113–145; BP diastolic 62–84
[~2019-03-23 07:35] MED LIST changes: +BACL10TA2 PO; -LISI30TA4 PO; +LISI40TA4 PO; +cefazolin/dext.iso 2gm/100ml 100 ML IV ONE; +famotidine 10mg tablet PO ONE; +ringers solution, lacted 1,000 ML IV SCH
[2019-03-23] MEDS ORDERED: BUPIVAcaine/PF 2.5mg/ml (0.25%) 10ml vial ONE (08:09)
[2019-03-23] MEDS ORDERED: LIDOcaine 1% 30ml preserv. free vial ONE (08:09)
[2019-03-23] MEDS ORDERED: BUPIVACAINE liposomal/PF 13.3 MG/ML vial IM ONE (08:10)
[2019-03-23] MEDS ORDERED: BUPIVAcaine/PF 2.5 mg/ml (0.25%) 30ml vial ONE (08:10)
[2019-03-23] MEDS ORDERED: sevoflurane 250ml liquid IH ONE (09:06)
[2019-03-23] MEDS ORDERED: midazolam 2 mg/2 ml injection ONE (09:10)
[2019-03-23] MEDS ORDERED: fentaNYL/PF 50MCG/1 ML 2ML syringe ONE (09:10)
[2019-03-23] MEDS ORDERED: ringers solution, lacted 1,000 ML IV SCH (10:08)
[2019-03-23] MEDS ORDERED: proCHLORperazine 10 MG/2 ml inj IV PRN (10:10)
[2019-03-23] MEDS ORDERED: meperidine/PF 25mg/ml syringe IV PRN ×3 (10:10)
[2019-03-23] MEDS ORDERED: morphine 4 MG/ML inj SYRINge IV PRN ×2 (10:10)
[2019-03-23] MEDS ORDERED: ondansetron/PF 4mg/2ml inj IV PRN (10:10)
[2019-03-23] MEDS ORDERED: ePHEDrine 50MG/ML INJ. ONE (11:21)
[2019-03-23] MEDS ORDERED: glycopyrrolate 0.2mg/ml inj ONE (11:21)
[2019-03-23] MEDS ORDERED: neostigmine methylsulfate 1 MG/ML 10ml vial ONE (11:21)
[2019-03-23] MEDS ORDERED: rocuronium 10mg/ml inj IV ONE (11:21)
[2019-03-23] MEDS ORDERED: propofol inj 20 ML IV ONE (11:21)
[2019-03-23] MEDS ORDERED: oxyCODONE/APAP 5-325mg tablet PO PRN ×2 (11:35)
--- NOTE | 2019-03-23 11:39 | NUR ---
Received from OR via [facility], accompanied by Anesthesiologist DR LOBATO and report given by Anesthesiologist. PT VERY DROWSY, NO S/S OF DISTRESS/DISCOMFORT, ABDOMINAL BINDER ON AND IN PLACE, CDI. Addendum: 03/23/19 at 1214 by Bernie Márquez RN Amended: Links added.
--- NOTE | 2019-03-23 14:59 | NUR ---
D/C INSTRUCTIONS GIVEN AND GONE OVER W/PT WHO VERBALIZED UNDERSTANDING, PT D/CD TO HOME VIA W/C TO PRIVATE VEHICLE W/O INCIDENT. Addendum: 03/23/19 at 1552 by Bernie Márquez RN Amended: Links added.
== END 2019-03-23 14:59 | disposition home or self-care (01) ==
LOC: PAS 07:35
PROVIDERS: ATTEND Surgery
DX: K43.2 Incisional hernia without obstruction or gangrene (principal); K66.0 Peritoneal adhesions (postprocedural) (postinfection); I10 Essential (primary) hypertension; Z90.49 Acquired absence of other specified parts of digestive tract; Z85.05 Personal history of malignant neoplasm of liver; Z98.890 Other specified postprocedural states; Z79.899 Other long term (current) drug therapy; Z88.8 Allergy status to other drugs, medicaments and biological substances; Z87.891 Personal history of nicotine dependence; Z86.19 Personal history of other infectious and parasitic diseases; Z82.49 Family history of ischemic heart disease and other diseases of the circulatory system
CPT/HCPCS: 36415; 49654; 64488; 80053; 82948; 85025; 93005; C1781; C9290; J2001; J2175; J2250; J2704; J2710; J3010; J3490; J7120; S2900; A4215; A4618

== ENCOUNTER 2024-12-14 08:50 | Observation (INO) | payer MEDICARE, BC, MEDICAID ==
[2024-12-14] VITALS (13 sets, daily range): BP systolic 115–164; BP diastolic 57–74; PULSE 59–99; RESP 13–18; TEMP 98–98.3; O2SAT 99–100
[~2024-12-14] VITALS: Ht 177.8 cm; Wt 64.4 kg
[~2024-12-14 08:50] MED LIST changes: +LISI40TA20 PO; -LISI40TA4 PO; +MULT-620 PO; -MULT1TAB74 PO; -cefazolin/dext.iso 2gm/100ml 100 ML IV ONE; -famotidine 10mg tablet PO ONE; -ringers solution, lacted 1,000 ML IV SCH
[2024-12-14] MEDS ORDERED: LISINOPRIL PO (09:28)
[2024-12-14] MEDS ORDERED: ASPI-1264 PO (09:28)
[2024-12-14] MEDS ORDERED: ASPI81TA52 PO (09:29)
[2024-12-14] MEDS ORDERED: normal saline 1000ml 1,000 ML IV PRN (09:35)
[2024-12-14 09:40] LABS: MEAN PLATELET VOLUME 9.3 FL (7.4-10.4); RED CELL DISTRIBUTION WIDTH 14.8 % (11.5-14.5)
[2024-12-14 09:58] LABS: APTT 26 SECONDS (22-32); INR 1.1 INR
[2024-12-14 10:01] LABS: CREATININE 1.18 MG/DL (0.60-1.10); TOTAL CARBON DIOXIDE 27.9 MMOL/L (24-32); eCRCL 54 ML/MIN; eGFR 61 ML/MIN
[2024-12-14] MEDS ORDERED: heparin 1,000 UNITS/NS 500ml 500 ML ONE ×3 (11:44→13:26)
[2024-12-14] MEDS ORDERED: LIDOcaine 1% 30ml preserv. free vial ONE (11:44)
[2024-12-14] MEDS ORDERED: iohexol 300mg/ml 100ml inj. ONE ×2 (11:44→13:37)
[2024-12-14] MEDS ORDERED: midazolam 1 mg/ML 2ml injection ONE (11:44)
[2024-12-14] MEDS ORDERED: fentaNYL/PF 50MCG/1 ML 2ML syringe ONE (11:44)
--- NOTE | 2024-12-14 11:48 | PROGRESS NOTE ---
H&P - Interval Note Providers to CC ~ Patient examined and condition: Yes Interval changes as follows: New paper H and P in chart today. Bilateral iliac artery stenoses, bilateral calf pain with minimal exertion. Prior smoker many years ago. 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 Dr Gardner referred patient as is avail in house if surgical intervention needed today. MAL 2 ASA 2. JORGE LUIS EDMOND MD Dec 14, 2024 11:48
[2024-12-14] MEDS ORDERED: heparin 1,000unit/ml 10ml vial 10 ML ONE (12:53)
--- NOTE | 2024-12-14 15:33 | PROGRESS NOTE ---
Progress Note - Angio Providers to CC ~ Angio Progress Note: S/P Bilateral Common and External iliac artery angioplasty procedures via B career coordinator groin access. Angioseal on Left and conventional hold on Right groin. No hematoma and B pedal pulses strong doppler signal. Long ride home after needed 6 hr bedrest hence ideal overnight observation with Plavix 75mg per day starting tonight with Qam dosing in future. F/U will likey be via Dr Gardner office as he is my referral surgeon for intervention. May be discharged in am if VSS and no groin hematoma/swelling/pain and B feet warm with doppler signal, no abd pain. EBL less than 10cc, No immed complications. Dictated. JORGE LUIS EDMOND MD Dec 14, 2024 15:33
[2024-12-14] MEDS ORDERED: magnesium Cl slow-release 64mg tablet PO PRN (16:55)
[2024-12-14] MEDS: normal saline 1000ml 1,000 ML IV SCH (16:55)
[2024-12-14] MEDS ORDERED: magnesium hydroxide 30ml (MOM) UD suspension PO PRN (16:55)
[2024-12-14] MEDS ORDERED: ondansetron/PF 4mg/2ml inj IV PRN (16:55)
[2024-12-14] MEDS ORDERED: magnesium sulf-water 4G/100mL 100 ML IV PRN (16:55)
[2024-12-14] MEDS ORDERED: potassium Cl 40MEQ/1/2NS 520ml 520 ML IV PRN (16:55)
[2024-12-14] MEDS ORDERED: magnesium sulf-water 2g/50mL 50 ML IV PRN (16:55)
[2024-12-14] MEDS ORDERED: mag hydrox/Alum hydrox/simeth 30ml oral suspension PO PRN (16:55)
[2024-12-14] MEDS ORDERED: potassium Cl 20 mEq SR tablet PO PRN ×2 (16:55)
--- NOTE | 2024-12-14 17:19 | HISTORY AND PHYSICAL ---
History & Physical Providers to ~ History of Present Illness Reason for Admit\Complaint: Bilateral iliac artery stenoses History of Present Illness Neftaly Moffett is a 69-year-old male with a past medical history of PAD who is s/p bilateral common and external iliac artery angioplasty today. Patient denies prior [place]/CAD, CVA, cardiac arrhythmia, DVT/PE, or GIB. Patient denies chest pain, palpitations, shortness of breath, abdominal pain, n/v/d, fever, chills, dysuria. Patient is admitted for monitoring. Allergies: Coded Allergies: No Known Allergies (Unverified , 11/20/17) Home Medications Home Medications Active Reported Aspirin EC (Aspirin) 81 Mg Tablet.dr 1 Tab PO ONCE 30 Days Aspirin* (Aspirin) 325 Mg Tablet 1 Tab PO DAILY 30 Days [Lisinopril ] 7.5 Mg PO BID B Complex (Vitamin B Complex) 1 Each Tablet 1 Each PO DAILY Multivitamins 1 Each Tablet 1 Tablet PO DAILY Past Medical History Past Medical History Hypertension Hyperlipidemia PAD CKD Hepatocellular carcinoma Past Surgical History Surgical History Comment Hepatectomy Incisional hernia repair Orthopedic surgeries Past Social History Social History Comment Alcohol: Denies Tobacco: Denies Illicit drug use: Denies Living situation: Lives at home alone ROS ROS Other than positives in HPI, all 14 review of systems are negative Exam Vitals: Vital Signs Date Time Temp Pulse Resp B/P (MAP) Pulse Ox O2 Delivery O2 Flow Rate FiO2 12/14/24 16:30 64 16 119/57 100 Room Air 12/14/24 10:04 98.3 General: Generalized weakness, A&Ox 3, NAD HEENT: Normocephalic, PERRLA Neck: Supple, trachea midline, no JVD Chest: Clear to auscultation bilaterally Cardiovascular: RRR, S1&S2 Abdomen: Soft and nontender Extremities: No cyanosis/clubbing/or edema Central Nervous System: CN II-XII intact, no focal deficits Musculoskeletal: No paraspinal muscle tenderness, no muscle spasm Skin: b/l groin incisions closed, no s/s of infection Diagnostic Data Last Recorded Lab Results: 12/14/24 0930 12/14/24 0930 Diagnostic Data: Laboratory Tests Test 12/14/24 09:30 Prothrombin Time 10.9 SECONDS (9.0-12.0) INR International Normalized Ratio 1.1 INR Activated Partial Thromboplast Time 26 SECONDS (22-32) Coagulation Comments Additional Plan Assessment & Plan PAD s/p bilateral common and external iliac artery angioplasty (12/14/24, Dr. Shirley) -Plavix, statin, supportive care Hypertension Hyperlipidemia PAD CKD Hx Hepatocellular carcinoma s/p hepatectomy -pending med rec DVT/VTE Prophylaxis: heparin Code Status: Full Code I spent a total of 35 minutes discussing Advanced Care Planning measures with the patient. Advance care planning: Discussed with patient the importance of advance care planning in case of emergent situation. We discussed various resuscitative measures/ ACP with the patient at the time of admission. Patient voiced understanding and patient has decided on a full code status. Date of Service: Dec 14, 2024 Billing Provider: [facility] DIAL Common Visit Codes: 24039-[id number] INP/OBS CARE (HIGH) Secondary Visit Codes: 32659-[id number] CARE PLAN 30 MINUTES EDVIN DIAL Dec 14, 2024 17:19
[2024-12-14] MEDS ORDERED: ondansetron 4mg rapidly disintigrating tab PO PRN (17:40)
[2024-12-14] MEDS ORDERED: morphine 4 MG/ML inj SYRINge IV PRN ×2 (17:40)
[2024-12-14] MEDS ORDERED: HYDROcodone/acetaminophen 5mg/325mg tablet PO PRN (17:40)
--- NOTE | 2024-12-14 18:21 | RADIOLOGY REPORT ---
Pelvic angiography including bilateral common and external iliac artery angioplasty HISTORY: Bilateral calf claudication occasionally occurring at rest. Previous smoker many years ago. Recent CT angiogram demonstrates bilateral common and external iliac artery stenoses most pronounced at the left common and external iliac artery as well as distal right external iliac artery just above common femoral artery. After explanation of the above procedures and informed consent, patient was prepped and draped in usual sterile fashion. Initially, ultrasound guidance and a micropuncture kit were used to access the right common femoral artery. A 5 [place] sheath was placed through this a injection through the sheath and gram demonstrates very low position of the stenosis at the distal right external iliac artery just above the inguinal ligament. This would make intervention via the right common femoral artery difficult and of higher risk. Therefore the left common femoral artery was accessed with similar technique utilizing micropuncture kit and ultrasound guidance. Following left common femoral artery access a 6 [place]ian sheath was placed over an 035 wire. Next an Omni flush catheter was advanced to the distal abdominal aorta and a pelvic injury gram was performed. FINDINGS: There is evidence of severe stenosis at the proximal right external iliac artery as well as the after mentioned stenosis on the order of 80% area reduction at the most extreme distal right external iliac artery. In addition there is evidence of moderate severity stenosis at the distal left common iliac artery extending to the proximal left external iliac artery. Next, a 6 mm x 2 cm balloon angioplasty was performed at the distal left common iliac artery and proximal left external iliac artery stenoses. These were on the order of 75% of area. Following angioplasty up to 10 rosamaria pressure post angioplasty angiography revealed significant improvement in overall flow and no evidence of extravasation or hematoma Following this a Destination 6 [place]ian sheath was used after accessing the contralateral right common iliac artery with SOS Omni catheter. This destination sheath was advanced to the right common iliac artery and angiogram demonstrated high-grade 90% stenosis of the distal right common iliac artery extending into the right external iliac artery. A tandem approximate 95% stenosis is seen at the extreme distal right external iliac artery with markedly poor filling of the majority of the external iliac artery. These stenoses were crossed with an angled 4 [place]ian catheter and Glidewire without incident. Next an exchange length Amplatz wire was advanced to the right superficial femoral artery and the destination sheath was further advanced. Angioplasty of the distal stenosis was performed first with initially a 5 mm angioplasty balloon with no flow significant residual stenosis and no evidence of extravasation or vessel disruption. Following this the sheath was retracted slightly and a 5 mm followed by 6 mm balloon angioplasty was performed at the right common iliac artery stenosis extending to the proximal right external iliac artery stenosis. Following 6 mm angioplasty there was no evidence of residual flow significant stenosis and no evidence of extravasation or vessel wall injury. The 6 [place] sheath was removed and hemostasis was achieved after adequate angiography documenting safe closure device placement. A 6 [place]ian Angio-Seal was successfully deployed without incident. The right common femoral artery 5 [place]ian sheath was closed via conventional graduated pressure over a 15 minute time frame with no evidence of hematoma and no evidence of disruption in strong Doppler pulses of both right and left dorsalis pedis and posterior tibial arteries. A total of 2 mg Versed and 100 mcg fentanyl given intravenously as conscious sedation. Start time 1230 hours and completion time 1432 hours for total sedation time 2 hours and 2 minutes. A total of 85 cc Omnipaque 300 used as contrast. A total of 8000 units heparin was administered during the procedure in aliquots of initially 3500 units followed by 1500 units every approximate 15 minutes. IMPRESSION: Successful bilateral common and external iliac artery angioplasty procedures utilizing 6 mm balloon angioplasty at the left common and right common iliac artery as well as proximal left external iliac artery and 5 mm angioplasty at the distal right external iliac artery just above the common femoral artery origin. Plans will be made for Plavix administration following procedure today, followed by 75 mg Plavix every morning at least for the next 6 months.
[2024-12-14] MEDS: heparin, porcine 5000 units/ml vial SQ SCH (20:00)
[2024-12-14] MEDS: docusate sod 100mg capsule PO SCH (20:00)
[2024-12-14] MEDS: K and/or MAG REPLACEMENT MC SCH (20:00)
[2024-12-14] MEDS: HYDROcodone/acetaminophen 10/325mg tab PO PRN (22:06)
[2024-12-14] MEDS: aspirin 81mg, enteric-coated 1 TAB TABLET.DR PO ONE (22:07)
[2024-12-14] MEDS: hydrALAZINE 20mg/ml inj. IV PRN (22:09)
[2024-12-15 06:00] VITALS: BP 105/54; PULSE 61; RESP 18; TEMP 98.6; O2SAT 100
[2024-12-15 06:44] LABS: MEAN PLATELET VOLUME 9.6 FL (7.4-10.4); RED CELL DISTRIBUTION WIDTH 15.0 % (11.5-14.5)
[2024-12-15 07:09] LABS: CHOL/HDL RATIO 3.7 (0.00-4.99); CREATININE 1.04 MG/DL (0.60-1.10); LDL CHOLESTEROL 88 MG/DL (50-100); TOTAL CARBON DIOXIDE 28.5 MMOL/L (24-32); eCRCL 61 ML/MIN; eGFR 71 ML/MIN
[2024-12-15] MEDS ORDERED: LISI5TAB22 PO (08:04)
[2024-12-15] MEDS ORDERED: ATOR20TA66 PO (08:04)
[2024-12-15] MEDS ORDERED: CLOP-32 PO (08:04)
[2024-12-15] MEDS: multivitamins, therapeutics tablet PO SCH (08:12)
[2024-12-15] MEDS: aspirin 81mg, enteric-coated 1 TAB TABLET.DR PO SCH (08:13)
[2024-12-15] MEDS: vitamin B comp w/Vit. C tab 1 TAB TABLET PO SCH (08:13)
[2024-12-15 09:06] VITALS: RESP 16; O2SAT 99
--- NOTE | 2024-12-15 09:55 | DISCHARGE SUMMARY ---
Discharge Summary Providers to CC ~ Discharge Summary Admission Diagnosis: s/p b/l common and ext iliac artery angioplasty Hospital Course DATE OF ADMISSION: 12/14/24 DATE OF DISCHARGE: 12/15/24 Discharge Diagnosis\Comment: PAD s/p bilateral common and external iliac artery angioplasty (12/14/24, Dr. Shirley) Hypertension Hyperlipidemia PAD CKD Hx Hepatocellular carcinoma s/p hepatectomy Operations\Procedures: b/l common and ext iliac artery angioplasty Consultants: IR Demar Montgomery Complications: None Condition on DC: Stable New Medications: Atorvastatin Calcium (Atorvastatin Calcium) 20 Mg Tablet 20 MG PO HS for 90 Days, #90 TAB Clopidogrel Bisulfate (Plavix) 75 Mg Tablet 1 TAB PO DAILY for 90 Days, #90 TAB 0 Refills Lisinopril (Lisinopril) 5 Mg Tablet 1 TAB PO DAILY for 90 Days, #90 TAB 0 Refills Continued Medications: Multivitamins (Multivitamins) 1 Each Tablet 1 TABLET PO DAILY, TABLET Vitamin B Complex (B Complex) 1 Each Tablet 1 EACH PO DAILY, TAB Discontinued Medications: Aspirin (Aspirin EC) 81 Mg Tablet.dr 1 TAB PO ONCE for 30 Days, #30 TAB Aspirin* (Aspirin*) 325 Mg Tablet 1 TAB PO DAILY for 30 Days, #30 TAB [Lisinopril ] () 7.5 MG PO BID Discharge Summary: History of Present Illness Neftaly Moffett is a 69-year-old male with a past medical history of PAD who is s/p bilateral common and external iliac artery angioplasty today by IR Dr. Shirley. Patient denies prior [place]/CAD, CVA, cardiac arrhythmia, DVT/PE, or GIB. Patient denies chest pain, palpitations, shortness of breath, abdominal pain, n/v/d, fever, chills, dysuria. Patient is admitted for monitoring. Hospital Course Patient was treated with Plavix. Patient did not experience further complications throughout the entire hospital stay and remained clinically and hemodynamically stable. Patient was seen and examined on the day of discharge. On day of discharge, vss and labs unremarkable. On physical assessment, no abdominal pain, groin hematoma, edema, or pain was noted. There were +2 pulsations in bilateral femoral, popliteal, posterior tibial, and dorsalis pedis arteries. All labs, diagnostic workups, discharge plan discussed with patient in details during visit before discharge. All questions and concerns answered to the best of my professional knowledge. Patient expresses willingness to be discharged and feels ready to be discharged. Patient ambulates independently without assistance. Patient is to be discharged to home to self and to follow up with PCP and Dr. Gardner within 2 weeks. Physical Exam General: Generalized weakness, A&Ox 3, NAD HEENT: Normocephalic, PERRLA Neck: Supple, trachea midline, no JVD Chest:Clear to auscultation bilaterally Cardiovascular: RRR, S1&S2 Abdomen: Soft and nontender Extremities: No cyanosis/clubbing/or edema Central Nervous System: CN II-XII intact, no focal deficits Musculoskeletal: No paraspinal muscle tenderness, no muscle spasm Skin: b/l groin incisions closed, no s/s of infection, no hematoma *Problems/Diagnosis: (1) PAD (peripheral artery disease) Status: Chronic (2) S/P angioplasty Status: Acute Total Time Spent on D/C: > 30 Minutes Date of Service: Dec 15, 2024 Billing Provider: EDVIN DIAL Common Visit Codes: 76485-HOU/OBS DISCH DAY >30min EDVIN DIAL Dec 15, 2024 09:55
[2024-12-15 11:00] VITALS: BP 125/54; PULSE 62; RESP 16; TEMP 98; O2SAT 100
== END 2024-12-15 12:38 | disposition home or self-care (01) ==
LOC: SSTAY O 08:50 → PCU 3S 16:57
PROVIDERS: ADMIT Nurse Practitioner Family; ATTEND Radiology Diagnostic Radiology
DX: I73.9 Peripheral vascular disease, unspecified (principal); I12.9 Hypertensive chronic kidney disease with stage 1 through stage 4 chronic kidney disease, or unspecified chronic kidney disease; N18.9 Chronic kidney disease, unspecified; E78.5 Hyperlipidemia, unspecified; K43.2 Incisional hernia without obstruction or gangrene; R53.1 Weakness; Z79.899 Other long term (current) drug therapy; Z98.890 Other specified postprocedural states
CPT/HCPCS: 37220; 37222; 80053; 80061; 83735; 85610; 85730; A4620; A6213; C1725; C1760; C1769; C1894; G0378; 36415; 85025; 87081; 99152; 99153; A6258; J0360; J1644; J7030